=== PATIENT | female | born 1990 | race Caucasian/White ===

== ENCOUNTER 2019-05-30 10:09 | Emergency (ER) | payer MEDICAID, OTHER ==
[~2019-05-30] VITALS: Ht 162.6 cm; Wt 119.3 kg
[~2019-05-30 10:09] MED LIST: [UNRECOGNIZED DRUG - OTHER]
[2019-05-30 10:27] VITALS: BP 111/72
== END 2019-05-30 10:49 | disposition home or self-care (01) ==
LOC: ER 10:11
DX: L03.031 Cellulitis of right toe (principal)
CPT/HCPCS: 99283; J7030

== ENCOUNTER 2019-06-10 10:39 | Emergency (ER) | payer MEDICAID ==
[~2019-06-10] VITALS: Ht 162.6 cm; Wt 119.3 kg
[2019-06-10 10:56] VITALS: BP 114/76
== END 2019-06-10 12:18 | disposition home or self-care (01) ==
LOC: ER 10:39
DX: L60.0 Ingrowing nail (principal); M79.5 Residual foreign body in soft tissue; J45.909 Unspecified asthma, uncomplicated

== ENCOUNTER 2022-05-16 18:10 | Emergency (ER) | payer MEDICAID ==
[~2022-05-16] VITALS: Ht 162.6 cm; Wt 119.7 kg
[2022-05-16 18:33] VITALS: BP 127/75
[2022-05-16] MEDS ORDERED: FLUORESCEIN SOD OPTH TEST STRIP EACHEYE ONE (20:45)
[2022-05-16] MEDS ORDERED: TETRACAINE HCL 0.5% OPTH(EYE) SOLN 4ML EACHEYE ONE (20:45)
== END 2022-05-16 21:34 | disposition home or self-care (01) ==
LOC: ER 18:10
DX: S05.02XA Injury of conjunctiva and corneal abrasion without foreign body, left eye, initial encounter (principal); J45.909 Unspecified asthma, uncomplicated; X58.XXXA Exposure to other specified factors, initial encounter; Y93.E9 Activity, other interior property and clothing maintenance; Y92.89 Other specified places as the place of occurrence of the external cause; Y99.8 Other external cause status